=== PATIENT | male | born 2000 | race Two or more races ===

== ENCOUNTER 2020-08-15 08:22 | Outpatient (CLI) | payer BC | END 2020-08-15 23:59 | disposition home or self-care (01) | LOC: MRI 08:22 | PROVIDERS: ATTEND Family Medicine | DX: M51.24 Other intervertebral disc displacement, thoracic region (principal); M40.294 Other kyphosis, thoracic region; M54.2 Cervicalgia | CPT/HCPCS: 72141-TC; 72146-TC ==

== ENCOUNTER 2022-07-26 08:21 | Outpatient (CLI) | payer BC ==
[2022-07-26] MEDS ORDERED: GADOTERATE MEGLUMINE 10 MMOL/20 ML VIAL IV ONE (08:22)
== END 2022-07-26 23:59 | disposition home or self-care (01) ==
LOC: MRI 08:21
PROVIDERS: ATTEND Family Medicine
DX: R56.9 Unspecified convulsions (principal)
CPT/HCPCS: 70553; A9575

== ENCOUNTER 2023-07-25 13:34 | Outpatient (CLI) | payer BC | END 2023-07-25 23:59 | disposition home or self-care (01) | LOC: MRI 13:34 | PROVIDERS: ATTEND Family Medicine | DX: M19.011 Primary osteoarthritis, right shoulder (principal); M89.8X1 Other specified disorders of bone, shoulder; M25.511 Pain in right shoulder; R60.0 Localized edema | CPT/HCPCS: 73221-TC ==